=== PATIENT | female | born 1965 | race Caucasian/White ===

== ENCOUNTER 2021-12-07 13:54 | Emergency (ER) | payer MEDICARE, OTHER ==
[~2021-12-07] VITALS: Ht 160 cm; Wt 73.9 kg
--- NOTE | 2021-12-07 13:57 | NUR ---
[id number], C/O L SIDED CP NON-RAD, "THROBBY x YEARS". 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 PATIENT STATES "TRYING TO HURT HER". FROM [address] TO ER BED 10, HOOKED TO RAILROAD COOK, SHOWS NSR. CHANGED TO HOSP [facility], AWAITING MD RODRIGUEZ.
[2021-12-07 14:28] LABS: BASOPHILS % (AUTO) 0.5 % (0.0-2.0); EOSINOPHILS % (AUTO) 1.2 % (0.0-6.0); HEMATOCRIT 41 % (33-45); HEMOGLOBIN 13.7 g/dL (11.5-14.8); LYMPHOCYTES # (AUTO) 2.1 K/uL (0.8-4.8); LYMPHOCYTES % (AUTO) 29.5 % (20.0-44.0); MEAN CORPUSCULAR HGB CONC 33 g/dl (31.0-36.0); MEAN CORPUSCULAR VOLUME 85 fL (82-100); MONOCYTES # (AUTO) 0.4 K/uL (0.1-1.30); MONOCYTES % (AUTO) 5.9 % (2.0-12.0); NEUTROPHILS # (AUTO) 4.4 K/uL (1.8-8.9); NEUTROPHILS % (AUTO) 62.9 % (43.0-81.0); PLATELET COUNT (AUTO) 196 K/uL (150-450); RED BLOOD CELL COUNT(AUTO) 4.83 MIL/uL (4.0-5.2); WHITE BLOOD COUNT (AUTO) 7.1 K/uL (4.3-11.0)
[2021-12-07 15:02] LABS: CALCIUM, SERUM 8.9 mg/dL (8.5-10.1); CARBON DIOXIDE 22 mmol/L (21-32); CHLORIDE 105 mmol/L (98-107); CREATININE 0.5 mg/dL (0.6-1.3); GLUCOSE 95 mg/dL (74-106); POTASSIUM 3.7 mmol/L (3.5-5.1); SODIUM SERUM 139 mmol/L (136-145); UREA NITROGEN, BLOOD 14 mg/dL (7-18)
--- NOTE | 2021-12-07 15:35 | NUR ---
KATERIN FROM [facility] LM CALLED AND WANTS TO KNOW IF AND WHEN PT IS MEDICALLY CLEARED TO RETURN BACK TO [facility]
--- NOTE | 2021-12-07 18:44 | NUR ---
REPORT GIVEN TO NATASHA FOR JEROD
--- NOTE | 2021-12-07 18:54 | NUR ---
[facility] TRANSPORT ETA [address] [facility].
--- NOTE | 2021-12-07 18:58 | NUR ---
[facility] TRANSPORT CANCELLED, [facility]TA[facility] WILL SEND TRANSPORT ETA [phone].
--- NOTE | 2021-12-07 19:42 | NUR ---
Patient discharged to home in stable condition. Written and verbal after care instructions given. Patient verbalizes understanding of instruction. Picked up by transport to [facility]
[2021-12-07 20:53] VITALS: BP 128/68
== END 2021-12-07 19:55 | disposition home or self-care (01) ==
LOC: ER 13:59
DX: R07.89 Other chest pain (principal); F41.9 Anxiety disorder, unspecified; I10 Essential (primary) hypertension; F20.0 Paranoid schizophrenia; Z88.0 Allergy status to penicillin
CPT/HCPCS: 36415; 71045-TC; 80048-TC; 84484-TC; 85025-TC